=== PATIENT | female | born 1970 | race Caucasian/White ===

== ENCOUNTER → 2020-07-29 | Outpatient (CLI) | payer MEDICAID ==
[~2020-07-29] MED LIST: NORCO 5-325 TA1 EAC2 PO
== END ==
LOC: M.PC 09:23
PROVIDERS: ATTEND Physical Medicine & Rehabilitation
DX: M47.816 Spondylosis without myelopathy or radiculopathy, lumbar region (principal); M51.36 Other intervertebral disc degeneration, lumbar region; M47.812 Spondylosis without myelopathy or radiculopathy, cervical region

== ENCOUNTER → 2020-08-26 | Outpatient (CLI) | payer MEDICAID ==
[~2020-08-26] MED LIST changes: +ADVIL200 M1 PO; +ALPHAGAN P5 ML OPHTHALMIC; +CARDIZEM30 MG PO; +FLUOXETINE HCL10 M1 PO; +KLONOPIN1 MG PO; +LIPITOR40 MG PO; +PROTONIX40 M2 PO; +SYMBICORT80 MCG/4.1 INH; +TIZANIDINE HCL4 M1 PO
== END ==
LOC: M.PC 09:30
PROVIDERS: ATTEND Physical Medicine & Rehabilitation
DX: M47.816 Spondylosis without myelopathy or radiculopathy, lumbar region (principal); M47.812 Spondylosis without myelopathy or radiculopathy, cervical region; M51.36 Other intervertebral disc degeneration, lumbar region; Z85.41 Personal history of malignant neoplasm of cervix uteri

== ENCOUNTER → 2020-09-23 | Outpatient (CLI) | payer MEDICAID | END | disposition home or self-care (01) | LOC: M.PC 08:36 | PROVIDERS: ATTEND Physical Medicine & Rehabilitation | DX: M47.816 Spondylosis without myelopathy or radiculopathy, lumbar region (principal); G89.29 Other chronic pain; J45.909 Unspecified asthma, uncomplicated; K21.9 Gastro-esophageal reflux disease without esophagitis; F17.210 Nicotine dependence, cigarettes, uncomplicated; Z98.890 Other specified postprocedural states; Z79.899 Other long term (current) drug therapy; Z88.8 Allergy status to other drugs, medicaments and biological substances; Z85.41 Personal history of malignant neoplasm of cervix uteri ==

== ENCOUNTER → 2020-10-23 | Outpatient (CLI) | payer MEDICAID ==
[~2020-10-23] MED LIST changes: +HYDROCODON-ACE1 EAC7 PO
== END | disposition home or self-care (01) ==
LOC: M.PC 10-21 10:00
PROVIDERS: ATTEND Physical Medicine & Rehabilitation
DX: M47.816 Spondylosis without myelopathy or radiculopathy, lumbar region (principal); M51.36 Other intervertebral disc degeneration, lumbar region; M47.812 Spondylosis without myelopathy or radiculopathy, cervical region; K21.9 Gastro-esophageal reflux disease without esophagitis; J45.909 Unspecified asthma, uncomplicated; I51.9 Heart disease, unspecified; Z79.899 Other long term (current) drug therapy; Z98.890 Other specified postprocedural states; Z82.49 Family history of ischemic heart disease and other diseases of the circulatory system

== ENCOUNTER → 2021-01-22 | Outpatient (CLI) | payer MEDICAID | LOC: M.PC 09:30 | PROVIDERS: ATTEND Physical Medicine & Rehabilitation | DX: M47.816 Spondylosis without myelopathy or radiculopathy, lumbar region (principal); M51.36 Other intervertebral disc degeneration, lumbar region; F41.9 Anxiety disorder, unspecified ==